=== PATIENT | female | born 1945 | race Caucasian/White ===

== ENCOUNTER → 2021-06-13 12:05 | Outpatient (CLI) | payer BC, SELFPAY ==
[2021-06-13 19:14] LABS: Alanine Aminotransferase 18 IU/L (<35)
[2021-06-13 19:29] LABS: Free T4, Direct Thyroxine 1.02 ng/dL (0.78-2.19)
[2021-06-13 19:43] LABS: Thyroid Stimulating Hormone 5.73 uIU/mL (0.47-4.68)
[2021-06-14 22:35] LABS: Triiodothyronine T3 Total 78 ng/dL (71-180)
== END ==
PROVIDERS: Family Provider Family Medicine; PCP Family Medicine; Visit Provider Internal Medicine
DX: E05.00 Thyrotoxicosis with diffuse goiter without thyrotoxic crisis or storm (principal)
CPT/HCPCS: 84439; 84443; 84460; 84480

== ENCOUNTER → 2021-10-04 14:24 | Outpatient (CLI) | payer BC, SELFPAY ==
[2021-10-05 19:57] LABS: Appearance Urine UA CLEAR; Bilirubin Urine UA NEGATIVE (NEGATIVE); Color Urine UA YELLOW; Glucose Urine UA NEGATIVE (Negative); Ketones Urine UA NEGATIVE (NEGATIVE); Leukocyte Esterase Urine UA 2+ (NEGATIVE); Nitrite Urine UA NEGATIVE (Negative); Occult Blood Urine UA NEGATIVE (Negative); Protein Urine UA NEGATIVE (Negative); Specific Gravity Urine UA 1.025 (1.000-1.035); Urobilinogen Urine UA 0.2 E.U./dL (0.2)
[2021-10-05 19:58] LABS: Bacteria Urine Occasional (0-1); Culture Indicated Urine Specimen Cultured; Hyaline Casts Urine 0-1/LPF; RBC Urine 0-1/HPF (0-5/HPF); Squamous Epithelial Cell Urine None Seen (0-5/HPF); WBC Urine 10-30/HPF (0-5/HPF)
[2021-10-06 12:55] LABS: Candida species Negative (Negative); Gardnerella vaginalis Negative (Negative); Trichomoas vaginalis Negative (Negative)
== END ==
PROVIDERS: Family Provider Family Medicine; PCP Family Medicine; Visit Provider Physician Assistant
DX: N76.0 Acute vaginitis (principal); R10.9 Unspecified abdominal pain
CPT/HCPCS: 81001; 87077; 87086; 87186; 87480; 87510; 87660

== ENCOUNTER → 2021-10-17 11:26 | Outpatient (CLI) | payer BC, SELFPAY ==
[2021-10-17 19:11] LABS: Appearance Urine UA CLEAR; Bilirubin Urine UA NEGATIVE (NEGATIVE); Color Urine UA YELLOW; Glucose Urine UA NEGATIVE (Negative); Ketones Urine UA NEGATIVE (NEGATIVE); Leukocyte Esterase Urine UA NEGATIVE (NEGATIVE); Nitrite Urine UA NEGATIVE (Negative); Occult Blood Urine UA NEGATIVE (Negative); Protein Urine UA NEGATIVE (Negative); Urobilinogen Urine UA 0.2 E.U./dL (0.2)
[2021-10-17 19:22] LABS: RBC Urine 0-1/HPF (0-5/HPF); Squamous Epithelial Cell Urine 10-30 /HPF (0-5/HPF); WBC Urine 5-10/HPF (0-5/HPF)
[2021-10-17 19:23] LABS: Bacteria Urine None Seen; Culture Indicated Urine Cult Not Indicated
== END ==
PROVIDERS: Family Provider Family Medicine; PCP Physician Assistant; Visit Provider Physician Assistant
DX: N39.0 Urinary tract infection, site not specified (principal)
CPT/HCPCS: 81001; 87086

== ENCOUNTER → 2021-10-18 09:59 | Outpatient (CLI) | payer BC, SELFPAY ==
[2021-10-18 19:06] LABS: Alanine Aminotransferase 23 IU/L (<35); Albumin 4.1 g/dL (3.5-5.0); Albumin Globulin Ratio 1.7 (1.0-2.8); Alkaline Phosphatase 82 U/L (38-126); Aspartate Aminotransferase 31 IU/L (14-36); BUN Creatinine Ratio 33.8 (6-22); Bilirubin Total 0.6 mg/dL (0.2-1.3); Blood Urea Nitrogen 22 mg/dL (7-17); Calcium 9.6 mg/dL (8.4-10.2); Carbon Dioxide 34 mmol/L (22-32); Chloride 104 mmol/L (98-107); Estimated Glomerular Filt Rate > 60.0 mL/min (>60); Globulin 2.4 g/dL (1.7-4.1); Glucose 90 mg/dL (80-110); HEMOLYSIS < 15 (0-50); Potassium 4.1 mmol/L (3.4-5.1); Sodium 140 mmol/L (137-145); Total Protein 6.5 g/dL (6.3-8.2)
== END ==
PROVIDERS: Internal Medicine Cardiovascular Disease; Family Provider Family Medicine; PCP Physician Assistant
DX: I25.10 Atherosclerotic heart disease of native coronary artery without angina pectoris (principal)
CPT/HCPCS: 80053

== ENCOUNTER → 2021-11-23 14:45 | Outpatient (CLI) | payer BC, SELFPAY | PROVIDERS: Family Provider Family Medicine; PCP Physician Assistant; Referring Provider Obstetrics & Gynecology; Visit Provider Obstetrics & Gynecology | DX: R14.0 Abdominal distension (gaseous) (principal) | CPT/HCPCS: 36415; 86304 ==

== ENCOUNTER → 2021-12-26 12:04 | Outpatient (CLI) | payer BC, SELFPAY ==
[2021-12-26 19:07] LABS: Alanine Aminotransferase 21 IU/L (<35)
[2021-12-26 19:39] LABS: Thyroid Stimulating Hormone 2.55 uIU/mL (0.47-4.68)
[2021-12-26 20:20] LABS: Free T4, Direct Thyroxine 1.38 ng/dL (0.78-2.19)
[2021-12-27 10:47] LABS: Triiodothyronine T3 Total 128
== END ==
PROVIDERS: Family Provider Family Medicine; PCP Physician Assistant; Visit Provider Internal Medicine
DX: E05.00 Thyrotoxicosis with diffuse goiter without thyrotoxic crisis or storm (principal)
CPT/HCPCS: 84439; 84443; 84460; 84480

== ENCOUNTER → 2023-03-12 11:19 | Outpatient (CLI) | payer BC, SELFPAY ==
[2023-03-12 20:11] LABS: Add Manual Diff / Slide Review NO; Basophils Absolute Auto 0 /uL (0-100); Basophils Percent Auto 0.9 % (0-2); Eosinophils Absolute Auto 100 /uL (0-450); Eosinophils Percent Auto 3.2 % (2-4); Hematocrit 41.3 % (36-46); Hemoglobin 13.8 g/dL (12.0-16.0); Lymphocytes Absolute Auto 1300 /uL (1100-4500); Mean Corpuscular HGB Conc 33.4 % (30-36); Mean Corpuscular Hemoglobin 30.4 PG (26-34); Mean Corpuscular Volume 90.9 fL (80-100); Monocytes Absolute Auto 400 /uL (0-900); Monocytes Percent Auto 8.9 % (3-14); Neutrophils Absolute Auto 2200 /uL (1500-7000); Platelet Count 209 X10^3/uL (150-400); Red Blood Cell Count 4.55 X10^6/uL (4.0-5.2); Red Cell Distribution Width 13.9 % (11.6-14.8)
[2023-03-12 20:30] LABS: HEMOLYSIS < 15 (0-50); Potassium 4.3 mmol/L (3.4-5.1)
[2023-03-12 20:31] LABS: Alanine Aminotransferase 26 IU/L (<35); Albumin 3.9 g/dL (3.5-5.0); Albumin Globulin Ratio 1.4 (1.0-2.8); Alkaline Phosphatase 98 U/L (38-126); Aspartate Aminotransferase 30 IU/L (14-36); Bilirubin Total 0.7 mg/dL (0.2-1.3); Blood Urea Nitrogen 18 mg/dL (7-17); Calcium 9.4 mg/dL (8.4-10.2); Carbon Dioxide 30 mmol/L (22-32); Chloride 103 mmol/L (98-107); Cholesterol 139 mg/dL (140-199); Estimated Glomerular Filt Rate > 60 mL/min (>60); Globulin 2.7 g/dL (1.7-4.1); Glucose 81 mg/dL (80-110); HDL Cholesterol 82 mg/dL (40-60); LDL Cholesterol Calculated 48 mg/dL (<100); Sodium 137 mmol/L (137-145); Total Protein 6.6 g/dL (6.3-8.2); Triglycerides 44 mg/dL (35-150)
[2023-03-12 20:39] LABS: Free T4, Direct Thyroxine 1.39 ng/dL (0.78-2.19)
[2023-03-12 20:40] LABS: Vitamin D 25 Hydroxy (D3) 45.6 ng/mL (30.0-100.0)
[2023-03-12 20:53] LABS: Thyroid Stimulating Hormone 2.28 uIU/mL (0.47-4.68)
[2023-03-14 22:49] LABS: Triiodothyronine T3 Total 89 ng/dL (71-180)
== END ==
PROVIDERS: Internal Medicine; Family Provider Family Medicine; PCP Family Medicine; Visit Provider Family Medicine
DX: E05.00 Thyrotoxicosis with diffuse goiter without thyrotoxic crisis or storm (principal); E55.9 Vitamin D deficiency, unspecified; M81.0 Age-related osteoporosis without current pathological fracture; I25.10 Atherosclerotic heart disease of native coronary artery without angina pectoris
CPT/HCPCS: 80053; 80061; 82306; 84439; 84443; 84480; 85025

== ENCOUNTER → 2023-12-26 13:01 | Outpatient (CLI) | payer BC, SELFPAY ==
[2023-12-28 15:06] LABS: Fecal Immunochemical Test Negative (Negative)
== END ==
PROVIDERS: Family Provider Family Medicine; PCP Family Medicine; Visit Provider Family Medicine
DX: Z12.11 Encounter for screening for malignant neoplasm of colon (principal)
CPT/HCPCS: 82274